=== PATIENT | female | born 1995 | race Caucasian/White ===

== ENCOUNTER 2025-05-13 18:58 | Emergency (ER) | payer SELFPAY ==
[~2025-05-13] VITALS: Ht 165.1 cm; Wt 75.0 kg
[2025-05-13 19:04] VITALS: TEMP 36.9; O2SAT 98
[2025-05-14] MEDS: ACETAMINOPHEN 325MG TABLET PO ONE (00:37)
[2025-05-14] MEDS ORDERED: IBUP-1455 MT (02:15)
[2025-05-14] MEDS ORDERED: GUAI-450 MT (02:15)
[2025-05-14] MEDS ORDERED: BENZ1LOZ73 MM (02:15)
[2025-05-14 02:37] VITALS: BP 102/68; PULSE 95; RESP 15; O2SAT 96
== END 2025-05-14 02:38 | disposition home or self-care (01) ==
LOC: ER 18:58
DX: J02.8 Acute pharyngitis due to other specified organisms (principal); B97.89 Other viral agents as the cause of diseases classified elsewhere
CPT/HCPCS: 71045; 87070; 87430; 99283